=== PATIENT | male | born 1960 | race Caucasian/White ===

== ENCOUNTER → 2020-06-18 | Day surgery (SDC) | payer OTHER ==
[~2020-06-18] MED LIST: ADVAIR 500-501 EACH INH; CEPHALEXIN500 MG PO; CLEOCIN300 MG PO; CLOTRIMAZOLE-BE30 ML TOP; KEFLEX500 MG PO; PRINIVIL10 MG PO; TRIAMCINOLONE 080 GM TOP; VOLTAREN **OUT75 MG PO
[2020-06-18 08:00] LABS: HCT 50.6 % (42.0-52.0); HGB 17.5 g/dl (13.2-18.0); MCH 31.1 pg (25.0-31.0); MCHC 34.6 g/dL (32.0-36.0); MCV 89.9 fL (78.0-100.0); MPV 9.2 fL (6.0-9.5); RBC 5.63 M/uL (4.70-6.00); RDW 12.5 % (11.5-14.0); WBC 10.5 K/uL (4.0-10.5)
[2020-06-18 08:55] LABS: ALBUMIN 4.4 g/dL (3.4-5.0); BILIRUBIN - TOTAL 1.1 mg/dL (0.2-1.0); BUN/CREAT RATIO (CALC) 12.1 RATIO; CREATININE 0.99 mg/dL (0.67-1.17); GLOBULIN (CALCULATION) 3.6 g/dL; POTASSIUM 4.2 mmol/L (3.5-5.1)
== END | disposition home or self-care (01) ==
LOC: FAS 06:59
PROVIDERS: Surgery
DX: K64.8 Other hemorrhoids (principal); K58.9 Irritable bowel syndrome, unspecified; G43.909 Migraine, unspecified, not intractable, without status migrainosus; J45.909 Unspecified asthma, uncomplicated; I10 Essential (primary) hypertension; Z20.822 Contact with and (suspected) exposure to COVID-19; Z88.6 Allergy status to analgesic agent; Z88.0 Allergy status to penicillin; Z88.2 Allergy status to sulfonamides; Z82.49 Family history of ischemic heart disease and other diseases of the circulatory system; Z83.3 Family history of diabetes mellitus
CPT/HCPCS: 36415; 80053; J2704; J7120